=== PATIENT | female | born 1960 ===

== ENCOUNTER 2017-06-12 06:53 | Day surgery (SDC) | payer OTHER ==
[2017-06-12] MEDS ORDERED: LIDOCAINE HCL 1% MPF SOL ONE (07:50)
[2017-06-12] MEDS ORDERED: PROPOFOL 500 MG/50 ML EMU IV ONE (07:50)
[2017-06-12 08:47] VITALS: TEMP 97.9
[2017-06-12 09:13] VITALS: BP 131/88; PULSE 62; RESP 20; O2SAT 99
== END 2017-06-12 09:28 | disposition home or self-care (01) ==
LOC: SURG 06:53
PROVIDERS: ATTEND Internal Medicine Gastroenterology
DX: R10.32 Left lower quadrant pain (principal); Z86.010 Personal history of colon polyps; E11.9 Type 2 diabetes mellitus without complications; K59.00 Constipation, unspecified; K57.30 Diverticulosis of large intestine without perforation or abscess without bleeding; K64.8 Other hemorrhoids; D12.5 Benign neoplasm of sigmoid colon
CPT/HCPCS: 82962; 99001; J2001; J2704

== ENCOUNTER 2017-08-31 17:49 | Emergency (ER) | payer OTHER ==
[2017-08-31 18:11] VITALS: BP 146/94; PULSE 93; RESP 18; TEMP 99.2; O2SAT 93
== END 2017-08-31 19:28 | disposition home or self-care (01) | DRG 556 ==
LOC: ED 17:49
DX: M79.1 Myalgia (principal); V43.53XA Car driver injured in collision with pick-up truck in traffic accident, initial encounter; Y92.411 Interstate highway as the place of occurrence of the external cause
CPT/HCPCS: 71045; 99282